=== PATIENT | male | born 1950 | race Caucasian/White ===

== ENCOUNTER 2017-12-10 16:28 | Emergency (ER) | payer MEDICAID, OTHER ==
[~2017-12-10] VITALS: Ht 167.6 cm; Wt 77.0 kg
[~2017-12-10 16:28] MED LIST: ASPI-1159 PO; LISI-604 PO; METF500T4 PO; REPAGLINIDE
[2017-12-10 20:18] LABS: CHLORIDE 104 mEq/L (98-107)
[2017-12-10 20:21] LABS: PARTIAL THROMBOPLASTIN TIME 25.1 sec (23.4-31.0); PROTHROMBIN TIME 10.5 sec (9.4-11.6)
[2017-12-10 20:28] LABS: BASOPHILS % 0.6 % (0.0-2.0); EOSINOPHILS % 3.6 % (0.0-5.0); HEMATOCRIT. 43.8 % (42.0-52.0); HEMOGLOBIN. 15.4 g/dL (14.0-18.0); LYMPHOCYTES % 37.8 % (20.0-50.0); MEAN CORPUSCULAR HEMOGLOBIN 29.9 pg (28.0-32.0); MEAN CORPUSCULAR VOLUME 85.4 fL (80.0-94.0); MEAN PLATELET VOLUME 8.2 fl (7.4-10.4); MONOCYTES % 10.5 % (2.0-8.0); NEUTROPHILS % 47.5 % (40.0-76.0); PLATELET 225 x1000/uL (130-400); RED BLOOD CELL COUNT 5.13 mill/uL (4.7-6.1); RED CELL DISTRIBUTION WIDTH 12.7 % (11.6-14.6)
[2017-12-10 20:30] LABS: CARBON DIOXIDE 24 mEq/L (21-32); TROPONIN I < 0.02 ng/mL (0.00-0.04)
[2017-12-10] MEDS ORDERED: SODIUM CHLORIDE 0.9% 1,000 ML IV ONE (21:15)
[2017-12-10 23:11] VITALS: BP_DIAS 70
[2017-12-10 23:42] VITALS: BP_SYST 130
== END 2017-12-10 23:44 | disposition home or self-care (01) ==
LOC: ER 17:25
DX: R53.1 Weakness (principal); R11.0 Nausea; E11.9 Type 2 diabetes mellitus without complications; E86.0 Dehydration; I10 Essential (primary) hypertension; R06.02 Shortness of breath; F17.200 Nicotine dependence, unspecified, uncomplicated; Z79.82 Long term (current) use of aspirin
CPT/HCPCS: 36415; 71045; 80053; 82962; 83690; 84484; 85025; 85610; 85730; 93005; 96360; 99285; J7030

== ENCOUNTER 2021-08-31 14:56 | Emergency (ER) | payer BC, MEDICAID, OTHER ==
[~2021-08-31] VITALS: Ht 170.2 cm; Wt 85.0 kg
[~2021-08-31 14:56] MED LIST changes: -ASPI-1159 PO; +ASPI-1497 PO; -LISI-604 PO; +LISI20TA31 PO; +METF-414 PO; -METF500T4 PO
[2021-08-31] MEDS ORDERED: IBUP-2028 MT (15:33)
[2021-08-31] MEDS ORDERED: IBUPROFEN 400MG TABLET PO ONE (15:45)
[2021-08-31 16:29] VITALS: BP 141/94
== END 2021-08-31 16:31 | disposition home or self-care (01) ==
LOC: ER 14:56
DX: M54.59 Other low back pain (principal); I10 Essential (primary) hypertension; V49.49XA Driver injured in collision with other motor vehicles in traffic accident, initial encounter; Y93.89 Activity, other specified; Y92.488 Other paved roadways as the place of occurrence of the external cause; Z85.46 Personal history of malignant neoplasm of prostate
CPT/HCPCS: 99282

== ENCOUNTER 2021-09-12 18:55 | Emergency (ER) | payer BC ==
[~2021-09-12] VITALS: Ht 167.6 cm; Wt 74.0 kg
[~2021-09-12 18:55] MED LIST changes: +IBUP-2028 MT
[2021-09-12] MEDS ORDERED: KETOROLAC 60MG/2ML VIAL IM ONE (20:30)
[2021-09-12] MEDS ORDERED: HYDROCODONE/ACETAMINOPHEN 5/325MG TABLET PO ONE (20:30)
[2021-09-12] MEDS ORDERED: HYDR-4001 MT ×6 (21:47→21:57)
[2021-09-12 22:40] VITALS: BP 158/89
== END 2021-09-12 23:02 | disposition home or self-care (01) ==
LOC: ER 18:55
DX: M25.551 Pain in right hip (principal); M54.59 Other low back pain; I10 Essential (primary) hypertension; C61 Malignant neoplasm of prostate; E11.9 Type 2 diabetes mellitus without complications; Z87.828 Personal history of other (healed) physical injury and trauma; Z79.84 Long term (current) use of oral hypoglycemic drugs; Z79.899 Other long term (current) drug therapy
CPT/HCPCS: 72100; 73502; 96372; 99284; J1885

== ENCOUNTER 2021-09-13 13:05 | Inpatient (IN) | payer BC ==
[~2021-09-13] VITALS: Ht 162.6 cm; Wt 69.9 kg
[~2021-09-13 13:05] MED LIST changes: +HYDR-4001 MT
[2021-09-13] MEDS ORDERED: IBUPROFEN 600MG TABLET PO STA (15:23)
[2021-09-13 15:40] LABS: BASOPHILS % 0.6 % (0.0-2.0); EOSINOPHILS % 2.4 % (0.0-5.0); HEMATOCRIT. 41.7 % (42.0-52.0); HEMOGLOBIN. 14.5 g/dL (14.0-18.0); LYMPHOCYTES % 27.9 % (20.0-50.0); MEAN CORPUSCULAR HEMOGLOBIN 29.2 pg (28.0-32.0); MEAN CORPUSCULAR VOLUME 83.9 fL (80.0-94.0); MEAN PLATELET VOLUME 8.2 fl (7.4-10.4); MONOCYTES % 7.6 % (2.0-8.0); NEUTROPHILS % 61.5 % (40.0-76.0); PLATELET 206 x1000/uL (130-400); RED BLOOD CELL COUNT 4.97 mill/uL (4.7-6.1); RED CELL DISTRIBUTION WIDTH 12.7 % (11.6-14.6)
[2021-09-13 15:46] LABS: CHLORIDE 106 mEq/L (98-107)
[2021-09-13 16:29] LABS: CLARITY URINE CLEAR (CLEAR); COLOR URINE YELLOW (YELLOW); KETONES URINE NEGATIVE (NEGATIVE); LEUKOCYTE ESTERASE URINE NEGATIVE (NEGATIVE); NITRITE URINE NEGATIVE (NEGATIVE); OCCULT BLOOD URINE NEGATIVE (NEGATIVE); PROTEIN URINE TRACE (NEGATIVE); SPECIFIC GRAVITY URINE 1.017 (1.005-1.030); UROBILINOGEN URINE 0.2 E.U./dL (0.2-1.0)
[2021-09-13] MEDS ORDERED: HYDROCODONE/ACETAMINOPHEN 5/325MG TABLET PO ONE (18:45)
[2021-09-14] VITALS: BP 162/74
[2021-09-14 00:42] VITALS: BP 162/74
[2021-09-14] MEDS ORDERED: DEXTROSE 50% WATER 50ML SYRINGE IV PRN (01:15)
[2021-09-14] MEDS ORDERED: NALOXONE HCL 0.4 MG/ML 1ML VIAL IV PRN (01:30)
[2021-09-14] MEDS ORDERED: ATOR20TA65 PO (01:58)
[2021-09-14 04:00] VITALS: BP 102/45
[2021-09-14] MEDS ORDERED: *PATIENT'S OWN MEDICATION STORAGE XX SCH (05:45)
[2021-09-14] MEDS: BLOOD SUGAR DIAGNOSTIC STRIP TEST SCH ×4 (06:28→21:00)
[2021-09-14 07:07] LABS: BASOPHILS % 0.7 % (0.0-2.0); HEMATOCRIT. 41.1 % (42.0-52.0); HEMOGLOBIN. 13.9 g/dL (14.0-18.0); MEAN CORPUSCULAR HEMOGLOBIN 29.1 pg (28.0-32.0); MEAN CORPUSCULAR VOLUME 86.1 fL (80.0-94.0); MEAN PLATELET VOLUME 8.7 fl (7.4-10.4); MONOCYTES % 8.9 % (2.0-8.0); NEUTROPHILS % 55.4 % (40.0-76.0); PLATELET 195 x1000/uL (130-400); RED BLOOD CELL COUNT 4.77 mill/uL (4.7-6.1); RED CELL DISTRIBUTION WIDTH 12.7 % (11.6-14.6)
[2021-09-14] MEDS: INSULIN LISPRO 100 UNITS/ML SUBCUT SCH ×4 (07:50→21:00)
[2021-09-14] MEDS: LISINOPRIL 20MG TABLET PO SCH (07:50)
[2021-09-14 08:00] VITALS: BP 139/70
[2021-09-14 12:00] VITALS: BP 150/83
[2021-09-14 20:41] VITALS: BP 128/68
[2021-09-14] MEDS: HYDROCODONE/ACETAMINOPHEN 10/325MG TABLET PO PRN (22:06)
[2021-09-15] VITALS: BP 122/63
[2021-09-15 04:00] VITALS: BP 111/60
[2021-09-15] MEDS: INSULIN LISPRO 100 UNITS/ML SUBCUT SCH ×4 (07:50→20:36)
[2021-09-15] MEDS: LISINOPRIL 20MG TABLET PO SCH (07:50)
[2021-09-15 08:00] VITALS: BP 113/53
[2021-09-15] MEDS: BLOOD SUGAR DIAGNOSTIC STRIP TEST SCH ×4 (08:19→20:38)
[2021-09-15 12:00] VITALS: BP 109/56
[2021-09-15 15:30] LABS: *AMPHETAMINES SCREEN URINE NEGATIVE (NEGATIVE); *BARBITURATES SCREEN URINE NEGATIVE (NEGATIVE); *BENZODIAZEPINES SCREEN URINE NEGATIVE (NEGATIVE); *COCAINE SCREEN URINE NEGATIVE (NEGATIVE)
[2021-09-15 15:31] LABS: CANNABINOID URINE SCREEN NEGATIVE (NEGATIVE); METHADONE URINE SCREEN NEGATIVE (NEGATIVE); OPIATES URINE SCREEN PRESUMTIVE POSITIVE (NEGATIVE); PHENCYCLIDINE URINE SCREEN NEGATIVE (NEGATIVE)
[2021-09-15 16:00] VITALS: BP_SYST 117; BP_SYST 128; BP_DIAS 66; BP_DIAS 67
[2021-09-15 20:00] VITALS: BP 140/65
[2021-09-15] MEDS: HYDROCODONE/ACETAMINOPHEN 10/325MG TABLET PO PRN (20:35)
[2021-09-16] VITALS: BP 125/70
[2021-09-16 03:42] VITALS: BP 138/63
[2021-09-16] MEDS: BLOOD SUGAR DIAGNOSTIC STRIP TEST SCH ×4 (06:19→21:43)
[2021-09-16] MEDS: INSULIN LISPRO 100 UNITS/ML SUBCUT SCH ×4 (06:20→21:00)
[2021-09-16 08:00] VITALS: BP 133/67
[2021-09-16] MEDS: LISINOPRIL 20MG TABLET PO SCH (08:54)
[2021-09-16 12:00] VITALS: BP 110/50
[2021-09-16 16:00] VITALS: BP 135/66
[2021-09-16 20:30] VITALS: BP 112/60
[2021-09-17 00:12] VITALS: BP 113/59
[2021-09-17 04:07] VITALS: BP_SYST 112; BP_SYST 115; BP_DIAS 63; BP_DIAS 64; BP_DIAS 73
[2021-09-17] MEDS: LISINOPRIL 20MG TABLET PO SCH (07:03)
[2021-09-17] MEDS: BLOOD SUGAR DIAGNOSTIC STRIP TEST SCH ×2 (07:03→11:39)
[2021-09-17] MEDS: INSULIN LISPRO 100 UNITS/ML SUBCUT SCH ×2 (07:04→12:51)
[2021-09-17 08:00] VITALS: BP_SYST 101; BP_SYST 149; BP_SYST 88; BP_DIAS 54; BP_DIAS 65; BP_DIAS 71
[2021-09-17 12:00] VITALS: BP 127/76
[2021-09-17 15:45] VITALS: BP 95/61
[2021-09-17 16:00] VITALS: BP 95/61
[2021-09-18] MEDS ORDERED: LISINOPRIL 5MG TABLET PO SCH (07:40)
== END 2021-09-17 16:40 | disposition home or self-care (01) | DRG 74 ==
LOC: ER 13:14 → 6EST 18:42 → EDBEDREQ 18:47 → EDBEDREQSVC 18:47 → ENRESERV 23:07 → 8WST 09-15 11:07
PROVIDERS: ADMIT Internal Medicine; ATTEND Internal Medicine
DX: G90.8 Other disorders of autonomic nervous system (principal); I16.0 Hypertensive urgency; M16.11 Unilateral primary osteoarthritis, right hip; E11.9 Type 2 diabetes mellitus without complications; F17.210 Nicotine dependence, cigarettes, uncomplicated; E78.00 Pure hypercholesterolemia, unspecified; I10 Essential (primary) hypertension; R26.2 Difficulty in walking, not elsewhere classified; J44.9 Chronic obstructive pulmonary disease, unspecified; F41.9 Anxiety disorder, unspecified; Y92.410 Unspecified street and highway as the place of occurrence of the external cause; V89.2XXA Person injured in unspecified motor-vehicle accident, traffic, initial encounter; Z79.891 Long term (current) use of opiate analgesic; Z79.899 Other long term (current) drug therapy; Z79.1 Long term (current) use of non-steroidal anti-inflammatories (NSAID); Z79.84 Long term (current) use of oral hypoglycemic drugs; Z79.82 Long term (current) use of aspirin; Z71.6 Tobacco abuse counseling; Y93.89 Activity, other specified; Y99.8 Other external cause status
CPT/HCPCS: 36415; 71045; 72195; 73552; 73560; 73700; 80048; 80053; 80305; 81003; 82962; 84484; 85025; 93005; 93306; 93880; 97162; 99285; J1815

== ENCOUNTER 2023-08-29 14:28 | Emergency (ER) | payer BC, OTHER ==
[~2023-08-29] VITALS: Ht 167.6 cm; Wt 74.0 kg
[~2023-08-29 14:28] MED LIST changes: +ATOR20TA65 PO; -LISI20TA31 PO; -REPAGLINIDE
[2023-08-29 14:43] VITALS: BP 155/81; PULSE 83; RESP 17; TEMP 97.9; O2SAT 99
[2023-08-29 15:11] LABS: BASOPHILS % 0.4 % (0.0-2.0); EOSINOPHILS % 1.3 % (0.0-5.0); HEMATOCRIT. 41.2 % (42.0-52.0); HEMOGLOBIN. 14.1 g/dL (14.0-18.0); LYMPHOCYTES % 28.2 % (20.0-50.0); MEAN CORPUSCULAR HEMOGLOBIN 29.8 pg (28.0-32.0); MEAN CORPUSCULAR HGB CONC 34.3 g/dL (31.0-37.0); MEAN CORPUSCULAR VOLUME 86.8 fL (80.0-94.0); MEAN PLATELET VOLUME 8.1 fl (7.4-10.4); MONOCYTES % 7.4 % (2.0-8.0); NEUTROPHILS % 62.7 % (40.0-76.0); PLATELET 259 x1000/uL (130-400); RED BLOOD CELL COUNT 4.74 mill/uL (4.7-6.1); RED CELL DISTRIBUTION WIDTH 12.8 % (11.6-14.6); WHITE BLOOD COUNT 6.4 x1000/uL (4.5-11.0)
[2023-08-29 15:17] LABS: CHLORIDE 109 mEq/L (98-107); INDEX HEMOLYSI 1 (1-3); INDEX ICTERIC 1 (1-4); INDEX LIPEMIC 1 (1-3); POTASSIUM 4.1 mEq/L (3.5-5.1); SODIUM 137 mEq/L (136-145)
[2023-08-29 15:28] LABS: ALANINE AMINOTRANSFERASE 29 IU/L (13-61); ALBUMIN 4.2 g/dL (3.4-5.0); ASPARTATE AMINOTRANSFERASE 30 IU/L (15-37); BILIRUBIN TOTAL 0.6 mg/dL (0.1-1.0); CALCIUM 8.1 mg/dL (8.5-10.1); CARBON DIOXIDE 20 mEq/L (21-32); CREATININE 1.4 mg/dL (0.6-1.3); GLUCOSE 116 mg/dL (70-105); PROTEIN TOTAL 7.4 g/dL (6.0-8.3); TROPONIN I HIGH SENSITIVITY 10 ng/L (<78); UREA NITROGEN BLOOD 14 mg/dL (7-21)
== END 2023-08-29 21:49 | disposition home or self-care (01) ==
LOC: ER 15:12
DX: R09.81 Nasal congestion (principal); R06.02 Shortness of breath; F41.9 Anxiety disorder, unspecified; E11.9 Type 2 diabetes mellitus without complications; I10 Essential (primary) hypertension; Z85.9 Personal history of malignant neoplasm, unspecified; Z98.890 Other specified postprocedural states
CPT/HCPCS: 71045; 80053; 84484; 85025; 93005; 99285